=== PATIENT | female | born 1975 | race Caucasian/White ===

== ENCOUNTER → 2020-01-23 11:34 | Outpatient (CLI) | payer OTHER, SELFPAY ==
[2020-01-25 07:36] LABS: COVID19 Sendout Not Detected (Not Detected)
== END ==
PROVIDERS: Visit Provider Physician Assistant
DX: Z01.812 Encounter for preprocedural laboratory examination (principal)
CPT/HCPCS: 87635

== ENCOUNTER 2020-01-25 11:33 | Day surgery (SDC) | payer OTHER, SELFPAY ==
[2019-12-19 12:43] VITALS: BMI 43.4
[2020-01-25] VITALS (9 sets, daily range): BP systolic 118–148; BP diastolic 74–98; PULSE 64–81; RESP 9–19; TEMP 36–37; O2SAT 95–98; BMI 42.7
--- NOTE | 2020-01-25 | PATH_ITS ---
[facility] Accession Number: [id number] . 01 Material submitted: . endometrium - ENDOMETRIAL BIOPSY . 02 Diagnosis: Endometrium, Biopsy: Dyssynchronous weakly proliferative endometrium with features of endometrial polyp. Negative for atypical hyperplasia or malignancy. [facility] 01/26/2020 1241 Local . 02 Electronically signed: . Russ Bustamante MD, PhD, Pathologist NPI- [id number] . 01 Gross description: . ENDOMETRIAL BIOPSY: Received in formalin are minute fragments of mucoid and hemorrhagic material measuring 2.0 x 2.0 x 0.3 cm in aggregate. Submitted in toto in 1 cassette. /[facility] 01/25/20202037 Local . 02 Pathologist provided ICD-10: N92.0 . 02 CPT . 928492 Performed at: 01 [facility] [address] [id number] MD Ford Huang MD Phone: [phone] Performed at: 02 [facility] [address] [place], [place] [id number] MD Teetee Perez MD Phone: [phone]
--- NOTE | 2020-01-25 11:36 | PM.GYNHP.1 ---
History of Present Illness History of Present Illness Narrative: Estela Ford is a 44 year old female admitted for hysteroscopy for menorrhagia [facility] Medical History (Updated 12/20/19 @ 21:43 by Jo Ann Haque) Asthma (Acute ~1994) Depression (Acute) Endometrial mass (Acute) Menorrhagia (Acute) Surgical History (Updated 12/20/19 @ 21:43 by Jo Ann Haque) Anesthesia (Resolved) History of cholecystectomy (Resolved ~2014) History of tubal ligation (Resolved ~2001) Family History (Updated 12/20/19 @ 21:44 by Jo Ann Haque) Grandfather Lung cancer Diabetes mellitus Grandmother Ovarian cancer Social History Smoking Status: Never smoker Meds Home Medications and Allergies Home Medications Medication Instructions Recorded Confirmed Type albuterol sulfate 90 mcg/actuation 2 puff INHALATION Q6H PRN 12/14/19 01/23/20 History aerosol inhaler buspirone 5 mg tablet 5 mg PO .qd tab 12/14/19 01/23/20 History fluoxetine 40 mg capsule 40 mg PO DAILY 12/14/19 01/23/20 History medroxyprogesterone 10 mg tablet 10 mg PO BID #60 tab 12/27/19 01/23/20 Rx oxycodone-acetaminophen 5 mg-325 1 tab PO Q4-6H PRN #30 tab 12/28/19 01/23/20 Rx mg tablet tranexamic acid 650 mg tablet 650 mg PO BID #10 tab 01/10/20 01/23/20 Rx Allergies Allergy/AdvReac Type Severity Reaction Status Date / Time No Known Drug Allergies Allergy Verified 01/23/20 11:45 Review of Systems Review of Systems ROS: Yes All systems reviewed with the patient and are negative except as otherwise documented Exam Narrative Exam Narrative: Principal diagnosis: Menorrhagia despite progesterone in tranxemic acid with likely polyp on ultrasound Planned procedure: Hysteroscopy D&C History of present illness: Patient is a 44-year-old who developed menorrhagia beginning on October 29, 2019. She was bleeding through 2 pads onto her clothes. She was seen by her primary care and ultrasound ordered. The ultrasound performed on 12/08/2019 showed a uterus measuring 9.92 x 6.24 x 6.05 cm with that endometrial thickness of 5.5 mm. Normal right and left ovaries. They did see a focal thickening involving the endometrium within the lower uterine segment measuring 1.6 x 1.3 x 1 with likely feeder blood vessel. She was started on tranexemic acid and her bleeding decreased significantly. She was scheduled for hysteroscopy and started on Provera therapy while waiting for the procedure. With the coronavirus concerns her surgery was delayed. She ended up having to restart Tranxemic acid which did not control her bleeding as well as prior. She is feeling very weak and is bleeding. Discussed ultrasound finding suggestive of either a polyp, fibroid but cannot rule out carcinoma. Discussed office biopsy just to rule out cancer precancer cells but for treatment of the bleeding the best choice would be hysteroscopy and removal of the mass. Discussed this procedure would be better performed then just proceeding with hysterectomy as if she has cancer she needs a specialized hysterectomy that we would not perform otherwise. Also would be able to remove a mass that would stop her bleeding and she would not need such an invasive surgery as a hysterectomy. Patient states her only past medical history includes asthma for which she only rarely uses inhalers per and depression for which she is taking citalopram and bupropion. On physical exam: The patient's HEENT exam within normal limits. Lungs are clear to auscultation and percussion. Heart is regular rate and rhythm no S3-S4 or murmurs. No thyromegaly. Abdomen is soft, nontender with no palpable organomegaly. Pelvic exam was not performed. Extremities without edema and nontender. Handouts on abnormal uterine bleeding and hysteroscopy were given to the patient. Consent form was reviewed with the patient. Risk of infection is minimal. Risk of bleeding enough to require transfusion minimal. Risk of absorbing too much of sugar solution minimal. Risk of perforation less than 1% that could require additional surgery or opening the abdomen to repair. Risk of reaction to medication or anesthesia. Patient is aware if she has cancer she will need additional surgery. Patient may continue to have abnormal bleeding after the procedure. Consent form signed and copy offered to the patient. Pre and postop instructions reviewed. Assessment & Plan Assessment and plan (1) Menorrhagia with irregular cycle: Current visit: No Status: Acute (2) Abnormal pelvic ultrasound: Current visit: No Status: Acute Assessment & Plan narrative: Patient with menorrhagia here for hysteroscopy D&C for probable polyp on ultrasound COVID-19 COVID-19 status: Negative Result date/Date tested (Pos, Neg/Pending): 01/23/20
[2020-01-25] MEDS: LACTATED RINGERS 1,000 ML 100 ML IV (12:01)
--- NOTE | 2020-01-25 12:35 | PM.PREOP ---
Pre-operative Note COVID-19 COVID-19 status: Negative Result date/Date tested (Pos, Neg/Pending): 01/23/20 Interval Note History & Physical reviewed/Exam performed by Physician: Yes Changes to H&P: No H&P completed within 30 days and has changed as indicated here:: see H+P done today
[2020-01-25] MEDS: CEFAZOLIN 2 GM/100 ML FROZ.PIGGY IV (12:44)
--- NOTE | 2020-01-25 13:03 | SUR.OPER ---
Lithotomy on padded OR bed, head on pillow, arms secured on padded arm boards at <90 degrees abduction. Legs secured in padded yellow fins stirrups.
--- NOTE | 2020-01-25 13:24 | PM.OP.1 ---
Operative Date/Time/Diagnoses Date of procedure: 01/25/20 Time of procedure: 13:25 Pre-op diagnosis: Menorrhagia with probable polyp on ultrasound Post-op diagnosis: same (No significant polyp found) Procedure & Clinicians Procedure: Hysteroscopy D&C Same procedure as scheduled: Yes Indications: Menorrhagia unresponsive to Provera therapy Surgeon: Che Truong Click Yes if Unassisted: Yes Anesthesia Type: General Operative Notes Findings: Thin endometrium with no obvious intrauterine pathology. Closure Type: not applicable Specimen(s): other (Endometrial biopsies) Estimated Blood Loss (mL): 10 Blood products transfused: none Procedure in detail: The patient was brought to the operating room where she underwent general anesthesia. She was placed in low stirrups She was prepped and draped in usual sterile fashion with pulsatile stockings in place and functional, warming in place, antibiotics in prior to beginning the case. Her bladder was drained with in and out catheter. A single-tooth tenaculum was placed on the anterior lip of the cervix and the uterus dilated to #8 Hegar dilator. The hysteroscope was placed into the uterus with a sorbitol solution running and under constant suction. The resecting loop set at 80 W of cutting was used to take multiple biopsies of the endometrium. A endometrial curettage was performed. The biopsies and the endometrial curettage was sent to pathology. The patient went to recovery room in good condition counts of instruments and sponges were correct. The sorbitol solution I=O approximately 3000 mL. Complications: none Post-operative Condition: stable Disposition: same day surgery Plan for aftercare: Home when awake and stable. Will discuss with patient options for treatment of her bleeding does not continue to improve after pathology report returns.
[2020-01-25] MEDS: fentaNYL 100 MCG/2 ML INJ IV ×2 (13:31→13:43)
[2020-01-25] MEDS: OXYCODONE/ACETAMINOPHEN 5/325 TABLET 1 TAB PO (13:50)
--- NOTE | 2020-01-25 15:31 | SUR.PHASEII ---
Passed small amount of blood vaginally upon standing, new marcus-pad provided. Patient agreed to call MD if bleeding worsened. Dr. Truong came to consult with patient regarding procedure results.
== END 2020-01-25 14:47 | disposition home or self-care (01) ==
PROVIDERS: Referring Provider Specialist; Visit Provider Specialist
PROC: 0UDB8ZZ Extraction of Endometrium, Via Natural or Artificial Opening Endoscopic (ICD-10-PCS; CPT 58558; principal; 2020-01-25 12:30)
DX: N92.0 Excessive and frequent menstruation with regular cycle (principal)
CPT/HCPCS: 58558; J0690; J1100; J1885; J2250; J2405; J2704; J3010

== ENCOUNTER → 2020-05-09 11:50 | Outpatient (CLI) | payer OTHER, SELFPAY ==
--- NOTE | 2020-05-09 11:53 | DI.US.S_ITS ---
PROCEDURE: US PELVIC COMPLETE INDICATIONS: HEAVY BLEEDING POST OPERATION TECHNIQUE: Real-time scanning was performed of the pelvic organs, with image documentation. Additional endovaginal scanning was necessary due to incomplete visualization of the adnexal and endometrial structures by transabdominal scanning. COMPARISON: [facility], US, US PELVIC COMPLETE WITH TRANSVAGINAL, 12/08/2019, 14:46. [facility], CT, CT ABDOMEN AND PELVIS WITH TRAUMA, 04/20/2019, 18:20. FINDINGS: Transabdominal scanning: Limited scanning through the kidneys shows no hydronephrosis. No pathologic free abdominal or pelvic fluid. Endovaginal scanning: Uterus: Uterus is normal in size at 5.4 x 6.6 x 10.4 cm, anteverted. The endometrium measures 5.0 mm in combined thickness and the exact endometrial detail is uncertain due to complexity of the endometrial lining and complex fluid also within the endometrial canal consistent with reported bleeding and clots.. Ovaries: Left ovary visualized, containing I of functional cyst, and the right ovary could not be seen. IMPRESSION: The clinical history includes report of bleeding immediately after at operative procedure. The current examination shows irregularity of the endometrial lining and moderately complex material within the endometrial canal consistent with a combination of fluid and blood clots. The exact endometrial anatomy is not established by this study. Normal left ovary, nonvisualization of the right ovary. Depending on the clinical status follow-up by repeat pelvic ultrasound may be warranted after postoperative bleeding has ceased. Dictated by: Logan Norman M.D. on 05/09/2020 at 13:24 Approved by: Logan Norman M.D. on 05/09/2020 at 13:29
[2020-05-09 13:12] LABS: Add Manual Diff / Slide Review NO; Basophils Absolute Auto 0 /uL (0-100); Basophils Percent Auto 0.7 % (0-2); Eosinophils Absolute Auto 100 /uL (0-450); Eosinophils Percent Auto 1.4 % (2-4); Hematocrit 29.8 % (36-46); Hemoglobin 9.4 g/dL (12.0-16.0); Lymphocytes Absolute Auto 1900 /uL (1100-4500); Lymphocytes Percent Auto 35.1 % (25-40); Mean Corpuscular HGB Conc 31.5 % (30-36); Mean Corpuscular Hemoglobin 23.2 PG (26-34); Mean Corpuscular Volume 73.7 fL (80-100); Monocytes Absolute Auto 300 /uL (0-900); Monocytes Percent Auto 5.7 % (3-14); Neutrophils Absolute Auto 3200 /uL (1500-7000); Neutrophils Percent Auto 57.1 % (50-75); Platelet Count 243 X10^3/uL (150-400); Red Blood Cell Count 4.04 X10^6/uL (4.0-5.2); Red Cell Distribution Width 18.1 % (11.6-14.8); White Blood Cell Count 5.5 X10^3/uL (4.5-11.0)
== END ==
PROVIDERS: PCP Nurse Practitioner Family; Referring Provider Specialist; Visit Provider Specialist
DX: N92.1 Excessive and frequent menstruation with irregular cycle (principal)
CPT/HCPCS: 36415; 76830; 76856; 85025

== ENCOUNTER → 2020-06-20 10:00 | Oncology outpatient (ONC) | payer OTHER, SELFPAY ==
[2020-06-06 10:20] VITALS: BP 120/82; PULSE 74; RESP 18; TEMP 36.8; O2SAT 97
[2020-06-06] MEDS: IRON SUCROSE 500 MG in SODIUM CHLORIDE 0.9% 250 ML 68.75 ML IV (10:35)
[2020-06-06 15:30] VITALS: BP 135/58; PULSE 73; RESP 18; TEMP 36.6
--- NOTE | 2020-06-06 16:16 | PC.NURSE ---
FIRST IRON INFUSION: PATIENT TOLERATED WITHOUT PROBLEM
[2020-06-20] MEDS: IRON SUCROSE 500 MG in SODIUM CHLORIDE 0.9% 250 ML 68.75 ML IV (10:47)
== END ==
PROVIDERS: PCP Nurse Practitioner Family; Referring Provider Nurse Practitioner Family; Visit Provider Specialist
DX: D50.0 Iron deficiency anemia secondary to blood loss (chronic) (principal); N92.1 Excessive and frequent menstruation with irregular cycle
CPT/HCPCS: 96365; 96366; J1756

== ENCOUNTER → 2022-01-02 08:48 | Outpatient (CLI) | payer OTHER, MEDICAID, SELFPAY ==
[2022-01-03 06:42] LABS: HSV 2 IGG AB 5.22 index (0.00-0.90)
== END ==
PROVIDERS: PCP Nurse Practitioner Family; Referring Provider Specialist; Visit Provider Specialist
DX: Z11.3 Encounter for screening for infections with a predominantly sexual mode of transmission (principal)
CPT/HCPCS: 81002; 86695; 86696